=== PATIENT | male | born 1965 | race African-American/Black ===

== ENCOUNTER 2017-03-22 07:09 | Emergency (ER) | payer SELFPAY ==
[~2017-03-22] VITALS: Wt 104.0 kg
[2017-03-22] MEDS ORDERED: KETOROLAC 60 MG INJ IM STA (07:48)
[2017-03-22] MEDS ORDERED: ATENOLOL 25 MG TAB PO ONE (08:00)
[2017-03-22] MEDS ORDERED: NAPR-260 PO (08:24)
[2017-03-22] MEDS ORDERED: ATEN-51 PO (08:24)
[2017-03-22] MEDS ORDERED: METH500T PO (08:24)
--- NOTE | 2017-03-22 08:27 | ERD ---
ER Documentation Chief Complaint Date/Time DATE: 03/22/17 TIME: 08:24 Chief Complaint LOW BACK PAIN, ONSET 3 DAYS, NO TRAUMA HPI This 51-year-old male presents with low back pain for 3 days. Has chronic back pain was exacerbated. He has been out of his normal pain medication which he cannot remember the name of. Also hypertensive in triage. States that he is also run out of his atenolol. No chest pain shortness of breath leg weakness. Fully ambulatory patient. ROS All systems reviewed and are negative except as per history of present illness. Medications Home Meds Active Scripts Methocarbamol* (Robaxin*) 500 Mg Tab, 500 MG PO Q8, #14 TAB Prov:KIRSTY AVILA DO 03/22/17 Naproxen* (Naprosyn*) 500 Mg Tablet, 500 MG PO BID, #20 TAB Prov:KIRSTY AVILA DO 03/22/17 Atenolol* (Atenolol*) 25 Mg Tablet, 25 MG PO BID, #20 TAB Prov:KIRSTY AVILA DO 03/22/17 Physical Exam Vitals Vital Signs Date Time Temp Pulse Resp B/P Pulse Ox O2 Delivery O2 Flow Rate FiO2 03/22/17 07:11 98.4 99 17 208/96 100 Physical Exam Const: [] No distress, sitting comfortably in bed. Had actually fallen asleep but was easily awakened for history and physical. Resp: Clear to auscultation bilaterally Cardio: Regular rate and rhythm, no murmurs Skin: No petechiae or rashes Back: No midline or flank tenderness, mild left lumbar paraspinal muscle spasm peer Ext: No cyanosis, or edema Neur: Awake and alert and oriented 3, no focal deficits Psych: Normal Mood and Affect Results 24 hrs Current Medications Medications (Trade) Dose Ordered Sig/Jace Route PRN Reason Start Time Stop Time Status Last Admin Dose Admin Atenolol (Tenormin) 25 mg ONCE ONCE PO 03/22/17 08:00 03/22/17 08:01 DC Ketorolac Tromethamine (Toradol) 60 mg ONCE STAT IM 03/22/17 07:48 03/22/17 07:50 DC Procedures/MDM Nontraumatic exacerbation of chronic lower back pain. No signs of cauda equina syndrome. Patient also hypertensive with no chest pain or symptoms of cardiac ischemia. Recently ran out of medication. Is given IM Toradol 60 mg with some pain relief. Going to discharge with Naprosyn and atenolol 25 mg p.o. twice daily with instructions to call doctor first thing Saturday for follow-up appointment Departure Diagnosis: Primary Impression: Hypertension Additional Impression: Low back strain Condition: Stable Patient Instructions: Self-Care for Low Back Pain, High Blood Pressure ( Hypertension) Additional Instructions: Call your primary care doctor TOMORROW for an appointment during the next 2-3 days.See the doctor sooner or return here if your condition worsens before your appointment time. KIRSTY AVILA DO Mar 22, 2017 08:27
[2017-03-22 08:46] VITALS: BP 180/82; PULSE 88; RESP 20; TEMP 98
== END 2017-03-22 08:54 | disposition home or self-care (01) ==
LOC: E/R 07:09
DX: I10 Essential (primary) hypertension (principal); S39.012A Strain of muscle, fascia and tendon of lower back, initial encounter; X58.XXXA Exposure to other specified factors, initial encounter; Y92.9 Unspecified place or not applicable
CPT/HCPCS: 96372; 99284; J1885